=== PATIENT | female | born 1995 | race Caucasian/White ===

== ENCOUNTER 2022-08-18 04:53 | Emergency (ER) | payer OTHER ==
[2022-08-18 05:11] VITALS: BP 105/59; PULSE 75; RESP 20; TEMP 97.7; BMI 26.6
[2022-08-18] MEDS ORDERED: ACETAMINOPHEN 500 MG TABLET (FP) PO ONE (05:43)
[2022-08-18] MEDS ORDERED: ACETAMINOPHEN 325 MG TABLET (FP) ONE (05:47)
== END 2022-08-18 06:44 | disposition home or self-care (01) ==
LOC: JER 04:53
DX: R07.89 Other chest pain (principal); V43.52XA Car driver injured in collision with other type car in traffic accident, initial encounter
CPT/HCPCS: 71045-TC-FY; 93005; 93010; 99284-25